=== PATIENT | male | born 1980 | race Caucasian/White ===

== ENCOUNTER 2017-05-15 03:45 | Emergency (ER) | payer OTHER ==
[~2017-05-15] VITALS: Ht 177.8 cm; Wt 86.2 kg
[2017-05-15] MEDS ORDERED: SUBOXONE 12 MG1 EACH SL (03:52)
[2017-05-15] MEDS ORDERED: VISTARIL50 MG PO (04:19)
[2017-05-15] MEDS ORDERED: PREDNISONE20 M1 PO (04:19)
== END 2017-05-15 04:41 | disposition home or self-care (01) ==
LOC: ED 03:45
DX: L25.9 Unspecified contact dermatitis, unspecified cause (principal); F17.210 Nicotine dependence, cigarettes, uncomplicated